=== PATIENT | female | born 1975 | race Caucasian/White ===

== ENCOUNTER 2017-03-05 16:25 | Emergency (ER) | payer SELFPAY ==
[2017-03-05 16:32] VITALS: BP 138/81; PULSE 86; TEMP 97.8; BMI 29.1
[2017-03-05] MEDS ORDERED: ACETAMINOPHEN 325 MG TABLET (FP) PO ONE (17:16)
[2017-03-05] MEDS ORDERED: SULFAMETHOXAZOLE/TRIMETHOPRIM 800MG/160MG D.S. TABLET PO ONE (17:17)
--- NOTE | 2017-03-05 17:24 | PDOC ---
History of Present Illness - General Chief Complaint: Abscess Boil Stated Complaint: LT FOOT SWOLLEN Time Seen by Provider: 03/05/17 16:58 History Source: Patient Exam Limitations: No Limitations - History of Present Illness Initial Comments: 03/05/17 17:21 Chief complaint: 3 tender reddened areas left lower buttocks getting worse History of present illness: Patient is a 41-year-old female with no significant medical history here today complaining of worsening 3 reddened areas left lower buttocks tiny raised area in center, tender to touch and hard. Patient reports that she noticed this earlier this week. Patient reviewed denies ever having anything like this in the past or has been in contact with anyone else with any areas like this on the body. Pt. denies any chills or fever. 03/05/17 17:25 Timing/Duration: getting worse Severity: mild (left lower buttock 3 smalll area of erythema with central raised area tender ) Associated Symptoms: reports: denies symptoms Past History - Past Medical History Allergies/Adverse Reactions: Allergies Allergy/AdvReac Type Severity Reaction Status Date / Time No Known Allergies Allergy Verified 03/05/17 16:28 Home Medications: Ambulatory Orders Sulfamethoxazole/Trimethoprim [Bactrim DS -] 1 tab PO BID #19 tablet 03/05/17 Other medical history: denies - Immunization History Immunization Up to Date: Yes - Psycho/Social/Smoking Cessation Hx Suicidal Ideation: No Smoking History: Never smoked Information on smoking cessation initiated: No Hx Alcohol Use: No Drug/Substance Use Hx: No Review of Systems - Review of Systems Able to Perform ROS?: Yes Constitutional: No: Symptoms Reported HEENTM: No: Symptoms Reported Respiratory: No: Symptoms reported Cardiac (ROS): No: Symptoms Reported ABD/GI: No: Symptoms Reported : No: Symptoms Reported Musculoskeletal: No: Symptoms Reported Integumentary: Yes: Erythema (3 area of erythema with central raised area firm tender) Neurological: No: Symptoms reported *Physical Exam - Vital Signs Last Vital Signs Temp Pulse Resp BP Pulse Ox 97.8 F 86 18 138/81 99 03/05/17 16:29 03/05/17 16:29 03/05/17 16:29 03/05/17 16:29 03/05/17 16:29 - Physical Exam General Appearance: Yes: Appropriately Dressed Respiratory/Chest: positive: Lungs Clear, Normal Breath Sounds Cardiovascular: positive: Regular Rhythm, Regular Rate, S1, S2 Integumentary: positive: Swelling (3 areas of erythema raised in center tender to cough left lower buttock non fluculant ) Neurologic: positive: Alert, Normal Response, Responsive Medical Decision Making - Medical Decision Making 03/05/17 17:24 Patient is a 41-year-old female with no significant medical history here today complaining of worsening 3 reddened areas left lower buttocks tiny raised area in center, tender to touch and hard. Patient reports that she noticed this earlier this week. Patient reviewed denies ever having anything like this in the past or has been in contact with anyone else with any areas like this on the body. Pt. denies any chills or fever. Denies any chance of is not sexually active for over 1 year gets her menstrual cycle monthly.. Early abscess left lower buttock PLAN: acetaminophen 975 mg po now bactrim DS one tab now than bid for 10 days Patient instructed to put as warm as possible hot washcloth on area every hour or 2 while awake and to return to emergency room if redness becomes worse and tenderness of area 03/05/17 17:25 03/05/17 18:06 *DC/Admit/Observation/Transfer Diagnosis at time of Disposition: Abscess of buttock, left - Discharge Dispostion Disposition: HOME Condition at time of disposition: Stable - Prescriptions Prescriptions: Sulfamethoxazole/Trimethoprim [Bactrim DS -] 1 tab PO BID #19 tablet - Patient Instructions Additional Instructions: Was possible wash cloth to left buttocks every hour or 2 for as long as possible for next few days while awake Take ibuprofen as needed as directed by dining car waiter/waitress for pain after eating Return to emergency room if any increased redness of area or tenderness or any discharge from area or any fever or chills Patient to follow up with primary care provider within the next 2 days Patient voiced understanding of discharge instructions and all questions were answered
[2017-03-05] MEDS ORDERED: ACETAMINOPHEN 325 MG TABLET (FP) ONE (17:29)
[2017-03-05] MEDS ORDERED: SULFAMETHOXAZOLE/TRIMETHOPRIM 800MG/160MG D.S. TABLET ONE (17:29)
== END 2017-03-05 18:11 | disposition home or self-care (01) ==
LOC: JERFT 16:25
DX: L02.31 Cutaneous abscess of buttock (principal)
CPT/HCPCS: 99281-25

== ENCOUNTER 2021-04-30 13:49 | Inpatient (IN) | payer OTHER ==
[~2021-04-30 13:49] MED LIST: PIPERACILLIN/TAZOB 3.375 GM 3.375 GM in DEXTROSE 5%-WATER - 50 ML IVPB SCH
[2021-04-30] MEDS ORDERED: ONDANSETRON 4 MG/2 ML VIAL IVPUSH ONE (14:55)
[2021-04-30] MEDS ORDERED: SODIUM CHLORIDE 0.9% 500 ML INFUS.BAG IV ONE ×2 (14:55→17:03)
[2021-04-30] MEDS ORDERED: morphine CARPU-JECT 4 MG/1 ML DISP.SYRIN IVPUSH ONE ×2 (14:55→17:03)
[2021-04-30] MEDS ORDERED: ONDANSETRON 4 MG/2 ML VIAL ONE (14:59)
[2021-04-30] MEDS ORDERED: morphine SULFATE 4 MG/ML VIAL ONE ×2 (14:59→17:27)
[2021-04-30 15:26] LABS: BASO % 0.2 % (0-2.0); EOS % 0.3 % (0-4.5); HEMATOCRIT 46.3 % (32.4-45.2); HEMOGLOBIN 15.8 GM/dL (10.7-15.3); LYMPH % 5.2 % (8-40); MCH 31.2 pg (25.7-33.7); MCHC 34.1 g/dl (32.0-36.0); MEAN CELL VOLUME 91.4 fl (80-96); MONO % 5.3 % (3.8-10.2); PLATELET COUNT 352 10^3/uL (134-434); RBC 5.06 M/mm3 (3.60-5.2); RDW 12.9 % (11.6-15.6); WHITE BLOOD COUNT 17.9 K/mm3 (4.0-10.0)
[2021-04-30 15:35] LABS: EPI CELLS 30 /uL (0-25.1); HYALINE CASTS 4 /uL (0-3.1); URINE APPEARANCE CLEAR; URINE BACTERIA 413 /uL (0-1359); URINE BILIRUBIN NEGATIVE (NEGATIVE); URINE COLOR DK YELLOW; URINE GLUCOSE (UA) NEGATIVE (NEGATIVE); URINE KETONE 2+ (NEGATIVE); URINE LEUK ESTERASE 1+ (NEGATIVE); URINE NITRITE NEGATIVE (NEGATIVE); URINE PROTEIN 1+ (NEGATIVE); URINE RBC 79 /uL (0-23.9); URINE UROBILINOGEN 0.2 mg/dL (0.2-1.0); URINE WBC 67 /uL (0-25.8)
[2021-04-30 15:36] LABS: INR 1.01 (0.83-1.09); PROTHROMBIN TIME (PATIENT) 12.2 SEC (9.7-13.0)
[2021-04-30 15:38] LABS: ACTIVATED PTT 24.5 SECONDS (25.2-36.5)
[2021-04-30 15:44] LABS: CHLORIDE 104 mmol/L (98-107); SODIUM 139 mmol/L (136-145)
[2021-04-30 15:47] LABS: ALBUMIN 4.5 g/dl (3.4-5.0); ANION GAP 7 MMOL/L (8-16); BLOOD UREA NITROGEN 11.8 mg/dL (7-18); CO2 27 mmol/L (21-32); GLUCOSE,RANDOM 107 mg/dL (74-106)
[2021-04-30 15:49] LABS: SGPT/ALT 33 U/L (13-61)
[2021-04-30 15:50] LABS: CREATININE 0.6 mg/dL (0.55-1.3); SGOT/AST 25 U/L (15-37)
[2021-04-30 15:51] LABS: BILIRUBIN,TOTAL 0.6 mg/dL (0.2-1); TOT PROT 8.6 g/dl (6.4-8.2)
[2021-04-30 15:52] LABS: ALK PHOS 82 U/L (45-117)
[2021-04-30 16:05] LABS: LIPASE > 30000 U/L (73-393)
[2021-04-30] MEDS ORDERED: LACTATED RINGERS SOLUTION 1000 ML INFUS.BAG IV ONE (17:42)
[2021-04-30 17:45] LABS: CHOLESTEROL 316 mg/dL (50-200); TRIGLYCERIDES 70 mg/dL (0-150)
[2021-04-30 17:46] LABS: LDL CHOLESTEROL (ONLY SJRH) 189 mg/dL (5-100)
[2021-04-30 17:48] LABS: HDL CHOLESTEROL 90 mg/dL (40-60)
[2021-04-30] MEDS ORDERED: PIPERACILLIN/TAZOB 3.375 GM 3.375 GM in DEXTROSE 5%-WATER - 50 ML IVPB ONE (19:10)
[2021-04-30] MEDS ORDERED: PIPERACILLIN/TAZOB 3.375 GM 3.375 GM/50 ML BAG IVPB ONE (19:21)
[2021-04-30] MEDS ORDERED: LACTATED RINGERS SOLUTION 1,000 ML/1,000 ML INFUS.BAG IV SCH (19:30)
[2021-04-30] MEDS ORDERED: MORPHINE SULFATE 2 MG/ML VIAL IVPUSH PRN (21:19)
[2021-04-30] MEDS: LACTATED RINGERS SOLUTION 1,000 ML/1,000 ML INFUS.BAG IV SCH (23:11)
[2021-05-01] MEDS ORDERED: PIPERACILLIN/TAZOBACTAM 3.375 GM VIAL IVPB ONE ×3 (03:26→16:57)
[2021-05-01] MEDS ORDERED: DEXTROSE 5%-WATER - 50 ML IVPB ONE ×3 (03:26→16:58)
[2021-05-01] MEDS: PIPERACILLIN/TAZOB 3.375 GM 3.375 GM in DEXTROSE 5%-WATER - 50 ML IVPB SCH ×3 (03:36→17:25)
[2021-05-01] MEDS: LACTATED RINGERS SOLUTION 1,000 ML/1,000 ML INFUS.BAG IV SCH ×3 (03:37→22:45)
[2021-05-01] MEDS ORDERED: PIPERACILLIN/TAZOB 3.375 GM 3.375 GM in DEXTROSE 5%-WATER - 50 ML IVPB SCH (04:00)
[2021-05-01 07:36] LABS: HEMATOCRIT 36.4 % (32.4-45.2); HEMOGLOBIN 12.6 GM/dL (10.7-15.3); MCH 31.8 pg (25.7-33.7); MCHC 34.5 g/dl (32.0-36.0); MEAN CELL VOLUME 92.2 fl (80-96); MEAN PLT VOLUME 7.5 fl (7.5-11.1); PLATELET COUNT 274 10^3/uL (134-434); RBC 3.95 M/mm3 (3.60-5.2); RDW 12.7 % (11.6-15.6)
[2021-05-01 07:45] LABS: INR 1.08 (0.83-1.09)
[2021-05-01 07:58] LABS: CALCIUM 7.9 mg/dL (8.5-10.1)
[2021-05-01 07:59] LABS: BLOOD UREA NITROGEN 7.1 mg/dL (7-18); MAGNESIUM 2.1 mg/dL (1.8-2.4)
[2021-05-01 08:02] LABS: CREATININE 0.4 mg/dL (0.55-1.3); PHOSPHOROUS 3.3 mg/dL (2.5-4.9)
[2021-05-01 08:04] LABS: BILIRUBIN,TOTAL 0.7 mg/dL (0.2-1)
[2021-05-01 08:18] LABS: ALBUMIN 3.2 g/dl (3.4-5.0); TOT PROT 6.1 g/dl (6.4-8.2)
[2021-05-01] MEDS ORDERED: ONDANSETRON 4 MG/2 ML VIAL IVPB PRN (08:24)
[2021-05-01] MEDS: ENOXAPARIN NA (PORCINE) 40 MG/0.4 ML DISP.SYRIN SQ SCH (10:48)
[2021-05-01] MEDS: KCL 10 MEQ IVPB 10 MEQ/100 ML INFUS.BAG IVPB SCH ×3 (12:31→14:30)
[2021-05-02] MEDS ORDERED: PIPERACILLIN/TAZOBACTAM 3.375 GM VIAL IVPB ONE ×3 (01:00→16:33)
[2021-05-02] MEDS ORDERED: DEXTROSE 5%-WATER - 50 ML IVPB ONE ×3 (01:00→16:33)
[2021-05-02] MEDS: PIPERACILLIN/TAZOB 3.375 GM 3.375 GM in DEXTROSE 5%-WATER - 50 ML IVPB SCH ×3 (01:08→17:12)
[2021-05-02] MEDS: LACTATED RINGERS SOLUTION 1,000 ML/1,000 ML INFUS.BAG IV SCH ×4 (03:30→23:25)
[2021-05-02 08:18] LABS: BASO % 0.2 % (0-2.0); EOS % 1.2 % (0-4.5); HEMATOCRIT 35.1 % (32.4-45.2); HEMOGLOBIN 12.2 GM/dL (10.7-15.3); LYMPH % 15.1 % (8-40); MCH 31.9 pg (25.7-33.7); MCHC 34.8 g/dl (32.0-36.0); MEAN CELL VOLUME 91.6 fl (80-96); MEAN PLT VOLUME 7.5 fl (7.5-11.1); MONO % 8.1 % (3.8-10.2); NEUT % 75.4 % (42.8-82.8); PLATELET COUNT 255 10^3/uL (134-434); RBC 3.83 M/mm3 (3.60-5.2); RDW 12.6 % (11.6-15.6); WHITE BLOOD COUNT 11.2 K/mm3 (4.0-10.0)
[2021-05-02 08:32] LABS: MAGNESIUM 1.7 mg/dL (1.8-2.4)
[2021-05-02 08:33] LABS: ALBUMIN 3.2 g/dl (3.4-5.0); BLOOD UREA NITROGEN 4.7 mg/dL (7-18); CALCIUM 8.1 mg/dL (8.5-10.1)
[2021-05-02 08:35] LABS: PHOSPHOROUS 3.3 mg/dL (2.5-4.9)
[2021-05-02 08:36] LABS: CREATININE 0.4 mg/dL (0.55-1.3)
[2021-05-02] MEDS: ENOXAPARIN NA (PORCINE) 40 MG/0.4 ML DISP.SYRIN SQ SCH (09:58)
[2021-05-02] MEDS ORDERED: MAGNESIUM 1GM/D5W 100ML - 100 ML IVPB IVPB ONE (11:28)
[2021-05-03] MEDS ORDERED: DEXTROSE 5%-WATER - 50 ML IVPB ONE ×2 (00:06→17:10)
[2021-05-03] MEDS ORDERED: PIPERACILLIN/TAZOBACTAM 3.375 GM VIAL IVPB ONE ×3 (00:06→17:10)
[2021-05-03] MEDS: PIPERACILLIN/TAZOB 3.375 GM 3.375 GM in DEXTROSE 5%-WATER - 50 ML IVPB SCH ×3 (01:10→17:38)
[2021-05-03] MEDS: LACTATED RINGERS SOLUTION 1,000 ML/1,000 ML INFUS.BAG IV SCH ×3 (04:30→19:16)
[2021-05-03 07:15] LABS: EOS % 2.9 % (0-4.5); HEMATOCRIT 33.6 % (32.4-45.2); HEMOGLOBIN 11.9 GM/dL (10.7-15.3); LYMPH % 27.1 % (8-40); MCH 32.4 pg (25.7-33.7); MCHC 35.6 g/dl (32.0-36.0); MEAN PLT VOLUME 7.4 fl (7.5-11.1); MONO % 8.2 % (3.8-10.2); NEUT % 61.8 % (42.8-82.8); PLATELET COUNT 271 10^3/uL (134-434); RBC 3.69 M/mm3 (3.60-5.2); RDW 12.2 % (11.6-15.6); WHITE BLOOD COUNT 7.5 K/mm3 (4.0-10.0)
[2021-05-03 07:19] LABS: ALBUMIN 3.2 g/dl (3.4-5.0)
[2021-05-03 07:20] LABS: BLOOD UREA NITROGEN 3.1 mg/dL (7-18); MAGNESIUM 1.9 mg/dL (1.8-2.4)
[2021-05-03 07:22] LABS: CREATININE 0.4 mg/dL (0.55-1.3)
[2021-05-03 07:23] LABS: PHOSPHOROUS 3.5 mg/dL (2.5-4.9)
[2021-05-03 07:24] LABS: TOT PROT 6.3 g/dl (6.4-8.2)
[2021-05-03] MEDS: ENOXAPARIN NA (PORCINE) 40 MG/0.4 ML DISP.SYRIN SQ SCH (10:15)
[2021-05-04] MEDS: LACTATED RINGERS SOLUTION 1,000 ML/1,000 ML INFUS.BAG IV SCH ×3 (00:30→21:00)
[2021-05-04] MEDS ORDERED: PIPERACILLIN/TAZOBACTAM 3.375 GM VIAL IVPB ONE ×3 (01:01→18:05)
[2021-05-04] MEDS ORDERED: DEXTROSE 5%-WATER - 50 ML IVPB ONE ×3 (01:01→18:05)
[2021-05-04] MEDS: PIPERACILLIN/TAZOB 3.375 GM 3.375 GM in DEXTROSE 5%-WATER - 50 ML IVPB SCH ×3 (01:08→18:21)
[2021-05-04 07:30] LABS: HEMATOCRIT 33.2 % (32.4-45.2); HEMOGLOBIN 11.6 GM/dL (10.7-15.3); MCH 31.8 pg (25.7-33.7); MCHC 34.9 g/dl (32.0-36.0); MEAN CELL VOLUME 91.2 fl (80-96); MEAN PLT VOLUME 7.7 fl (7.5-11.1); PLATELET COUNT 230 10^3/uL (134-434); RBC 3.64 M/mm3 (3.60-5.2); RDW 12.4 % (11.6-15.6); WHITE BLOOD COUNT 7.1 K/mm3 (4.0-10.0)
[2021-05-04 07:52] LABS: CHLORIDE 106 mmol/L (98-107); SODIUM 139 mmol/L (136-145)
[2021-05-04 07:59] LABS: CALCIUM 8.1 mg/dL (8.5-10.1); GLUCOSE,RANDOM 89 mg/dL (74-106)
[2021-05-04 08:00] LABS: ANION GAP 6 MMOL/L (8-16); CO2 27 mmol/L (21-32); MAGNESIUM 1.8 mg/dL (1.8-2.4)
[2021-05-04 08:03] LABS: CREATININE 0.4 mg/dL (0.55-1.3); PHOSPHOROUS 4.2 mg/dL (2.5-4.9)
[2021-05-04] MEDS ORDERED: POTASSIUM CHLORIDE ORAL LIQUID 20 MEQ/15 ML PO ONE (08:20)
[2021-05-04] MEDS: ENOXAPARIN NA (PORCINE) 40 MG/0.4 ML DISP.SYRIN SQ SCH (10:05)
[2021-05-04 12:40] LABS: CHLORIDE 108 mmol/L (98-107); SODIUM 141 mmol/L (136-145)
[2021-05-04 12:47] LABS: CALCIUM 8.3 mg/dL (8.5-10.1)
[2021-05-04 12:48] LABS: ANION GAP 8 MMOL/L (8-16); CO2 25 mmol/L (21-32); GLUCOSE,RANDOM 142 mg/dL (74-106)
[2021-05-04 12:51] LABS: CREATININE 0.5 mg/dL (0.55-1.3)
[2021-05-04 12:54] LABS: BLOOD UREA NITROGEN 2.5 mg/dL (7-18)
[2021-05-04 15:16] LABS: BLOOD UREA NITROGEN 2.3 mg/dL (7-18)
[2021-05-04 18:26] LABS: PH,URINE 8.5 (5.0-8.0); URINE APPEARANCE CLEAR; URINE BILIRUBIN NEGATIVE (NEGATIVE); URINE COLOR YELLOW; URINE GLUCOSE (UA) NEGATIVE (NEGATIVE); URINE KETONE 1+ (NEGATIVE); URINE LEUK ESTERASE NEGATIVE (NEGATIVE); URINE NITRITE NEGATIVE (NEGATIVE); URINE PROTEIN NEGATIVE (NEGATIVE); URINE UROBILINOGEN 0.2 mg/dL (0.2-1.0)
[2021-05-05] MEDS ORDERED: PIPERACILLIN/TAZOBACTAM 3.375 GM VIAL IVPB ONE ×3 (02:57→18:13)
[2021-05-05] MEDS ORDERED: DEXTROSE 5%-WATER - 50 ML IVPB ONE ×2 (02:58→09:01)
[2021-05-05] MEDS: PIPERACILLIN/TAZOB 3.375 GM 3.375 GM in DEXTROSE 5%-WATER - 50 ML IVPB SCH ×3 (03:00→18:31)
[2021-05-05] MEDS: LACTATED RINGERS SOLUTION 1,000 ML/1,000 ML INFUS.BAG IV SCH ×5 (03:10→22:30)
[2021-05-05 07:51] LABS: CALCIUM 8.2 mg/dL (8.5-10.1)
[2021-05-05 07:52] LABS: BLOOD UREA NITROGEN 3.1 mg/dL (7-18); MAGNESIUM 1.7 mg/dL (1.8-2.4)
[2021-05-05 07:55] LABS: CREATININE 0.4 mg/dL (0.55-1.3)
[2021-05-05 07:56] LABS: PHOSPHOROUS 4.1 mg/dL (2.5-4.9)
[2021-05-05 07:57] LABS: TOT PROT 6.2 g/dl (6.4-8.2)
[2021-05-05] MEDS: ENOXAPARIN NA (PORCINE) 40 MG/0.4 ML DISP.SYRIN SQ SCH (09:27)
[2021-05-05] MEDS ORDERED: MAGNESIUM SULF 50% (8.12 MEQ/2 ML-1 GM VIAL) IVPB ONE (10:47)
[2021-05-05] MEDS ORDERED: POTASSIUM CHLORIDE ORAL LIQUID 20 MEQ/15 ML PO ONE (10:47)
[2021-05-06] MEDS ORDERED: BUPIVACAINE HCL/PF 0.5% (5 MG/ML) 30 ML VIAL IJ ONE
[2021-05-06] MEDS ORDERED: ceFAZolin SODIUM 1 GM VIAL IVPB ONE
[2021-05-06] MEDS ORDERED: PIPERACILLIN/TAZOBACTAM 3.375 GM VIAL IVPB ONE ×3 (01:45→10:10)
[2021-05-06] MEDS ORDERED: DEXTROSE 5%-WATER - 50 ML IVPB ONE ×2 (01:45→08:32)
[2021-05-06] MEDS: PIPERACILLIN/TAZOB 3.375 GM 3.375 GM in DEXTROSE 5%-WATER - 50 ML IVPB SCH ×2 (02:30→10:46)
[2021-05-06] MEDS: LACTATED RINGERS SOLUTION 1,000 ML/1,000 ML INFUS.BAG IV SCH ×4 (03:18→21:26)
[2021-05-06] MEDS ORDERED: BUPIVACAINE HCL/PF 0.5% (5MG/ML) 10 ML VIAL ONE ×2 (07:26→07:27)
[2021-05-06 07:47] LABS: HEMOGLOBIN 11.9 GM/dL (10.7-15.3); MCH 32.4 pg (25.7-33.7); MCHC 35.9 g/dl (32.0-36.0); MEAN CELL VOLUME 90.2 fl (80-96); MEAN PLT VOLUME 7.6 fl (7.5-11.1); PLATELET COUNT 265 10^3/uL (134-434); RBC 3.66 M/mm3 (3.60-5.2); RDW 12.2 % (11.6-15.6); WHITE BLOOD COUNT 6.6 K/mm3 (4.0-10.0)
[2021-05-06 07:51] LABS: INR 1.16 (0.83-1.09); PROTHROMBIN TIME (PATIENT) 14.2 SEC (9.7-13.0)
[2021-05-06 07:54] LABS: ACTIVATED PTT 28.3 SECONDS (25.2-36.5)
[2021-05-06 08:08] LABS: CALCIUM 8.2 mg/dL (8.5-10.1)
[2021-05-06 08:10] LABS: MAGNESIUM 2.1 mg/dL (1.8-2.4)
[2021-05-06 08:12] LABS: CREATININE 0.4 mg/dL (0.55-1.3)
[2021-05-06 08:14] LABS: BILIRUBIN,TOTAL 0.6 mg/dL (0.2-1); TOT PROT 6.1 g/dl (6.4-8.2)
[2021-05-06] MEDS ORDERED: fentaNYL CITRATE 250 MCG/5 ML VIAL ONE (10:15)
[2021-05-06] MEDS ORDERED: DEXAMETHASONE SOD PHOSPHATE 4 MG/1 ML VIAL ONE (10:15)
[2021-05-06] MEDS ORDERED: ROCURONIUM BROMIDE 50 MG/5 ML SYRINGE ONE (10:16)
[2021-05-06] MEDS ORDERED: PROPOFOL 20 ML ONE ×2 (10:16)
[2021-05-06] MEDS ORDERED: MIDAZOLAM HCL 2 MG/2 ML SINGLE DOSE VIAL ONE (10:16)
[2021-05-06] MEDS ORDERED: oxyCODONE HCL 5 MG TABLET PO PRN (10:58)
[2021-05-06] MEDS ORDERED: ONDANSETRON 4 MG/2 ML VIAL IVPB PRN (12:24)
[2021-05-06 21:15] LABS: CALCIUM 8.2 mg/dL (8.5-10.1)
[2021-05-06 21:16] LABS: BLOOD UREA NITROGEN 3.6 mg/dL (7-18)
[2021-05-06 21:19] LABS: CREATININE 0.3 mg/dL (0.55-1.3)
[2021-05-06] MEDS: oxyCODONE HCL 5 MG TABLET PO PRN (21:35)
[2021-05-07] MEDS: oxyCODONE HCL 5 MG TABLET PO PRN ×4 (01:34→20:51)
[2021-05-07] MEDS: LACTATED RINGERS SOLUTION 1,000 ML/1,000 ML INFUS.BAG IV SCH (02:30)
[2021-05-07] MEDS ORDERED: ACETAMINOPHEN 1000 MG/100 ML VIAL (NON FORMULARY) IVPB ONE (02:57)
[2021-05-07] MEDS ORDERED: DOCUSATE SODIUM 100 MG CAPSULE (FP) PO ONE (02:58)
[2021-05-07 08:10] LABS: HEMATOCRIT 34.7 % (32.4-45.2); HEMOGLOBIN 12.3 GM/dL (10.7-15.3); MCH 32.1 pg (25.7-33.7); MCHC 35.5 g/dl (32.0-36.0); MEAN CELL VOLUME 90.5 fl (80-96); MEAN PLT VOLUME 7.3 fl (7.5-11.1); PLATELET COUNT 273 10^3/uL (134-434); RBC 3.84 M/mm3 (3.60-5.2); RDW 12.3 % (11.6-15.6); WHITE BLOOD COUNT 8.8 K/mm3 (4.0-10.0)
[2021-05-07 08:35] LABS: MAGNESIUM 2.1 mg/dL (1.8-2.4)
[2021-05-07 08:39] LABS: PHOSPHOROUS 3.6 mg/dL (2.5-4.9)
[2021-05-07] MEDS ORDERED: POLYETHYLENE GLYCOL 3350 119 GM BTL PO SCH (10:00)
[2021-05-07] MEDS ORDERED: ACETAMINOPHEN 325 MG TABLET (FP) PO PRN ×2 (12:42→16:15)
[2021-05-07 15:17] VITALS: BMI 24.7
[2021-05-08] MEDS ORDERED: POLYETHYLENE GLYCOL (HEALTHYLAX) 3350 17 GM PACKET PO SCH (10:00)
[2021-05-08] MEDS ORDERED: DOCUSATE SODIUM 100 MG CAPSULE (FP) PO SCH (14:00)
[2021-05-08 15:09] VITALS: BP 102/68; PULSE 72; TEMP 97.9
[2021-05-08] MEDS: oxyCODONE HCL 5 MG TABLET PO PRN (18:11)
== END 2021-05-08 18:35 | disposition home or self-care (01) | DRG 263 ==
LOC: JER 13:49 → JERBED 19:41 → J4W 21:56
PROVIDERS: ADMIT Internal Medicine
PROC: 0FT44ZZ Resection of Gallbladder, Percutaneous Endoscopic Approach (ICD-10-PCS; principal; 2021-05-06 09:30)
DX: K85.10 Biliary acute pancreatitis without necrosis or infection (principal); K81.0 Acute cholecystitis; I10 Essential (primary) hypertension; E78.5 Hyperlipidemia, unspecified
CPT/HCPCS: 36415; 71046-TC-FY; 74177-TC; 74182-TC; 76705-TC; 80048; 80053; 80061; 81003; 82150; 83690; 83735; 84100; 84703; 85025; 85027; 85610; 85730; 86140; 86850; 86900; 86901; 87086; 87324; 87449; 93005; 93010; 94760; 99285-25; A9579; C9803; J0131; U0003; U0005

== ENCOUNTER 2021-10-30 08:06 | Emergency (ER) | payer OTHER ==
[2021-10-30 08:15] VITALS: BP 119/73; PULSE 85; TEMP 97.5; BMI 28.3
[2021-10-30] MEDS ORDERED: CARBAMIDE PEROXIDE 6.5% OTIC 15 ML BOTTLE AU ONE (08:49)
== END 2021-10-30 10:14 | disposition home or self-care (01) ==
LOC: JERFT 08:06
DX: H61.22 Impacted cerumen, left ear (principal)
CPT/HCPCS: 99283-25

== ENCOUNTER 2022-01-17 11:31 | Emergency (ER) | payer OTHER ==
[2022-01-17 11:37] VITALS: BP 124/79; PULSE 80; TEMP 98; BMI 24.0
[2022-01-17] MEDS ORDERED: SODIUM CHLORIDE 0.9% 500 ML INFUS.BAG IV ONE (12:31)
[2022-01-17] MEDS ORDERED: KETOROLAC TROMETHAMINE 30 MG/1 ML VIAL IVPB ONE (12:31)
[2022-01-17] MEDS ORDERED: METOCLOPRAMIDE HCL INJECTION 10 MG/2 ML VIAL IVPUSH ONE (12:32)
[2022-01-17] MEDS ORDERED: KETOROLAC TROMETHAMINE 30 MG/1 ML VIAL ONE (12:41)
[2022-01-17] MEDS ORDERED: METOCLOPRAMIDE HCL INJECTION 10 MG/2 ML VIAL ONE (12:41)
[2022-01-17 13:11] LABS: BASO % 0.8 % (0-2.0); EOS % 0.9 % (0-4.5); HEMATOCRIT 42.3 % (32.4-45.2); HEMOGLOBIN 14.7 GM/dL (10.7-15.3); LYMPH % 23.6 % (8-40); MCH 31.7 pg (25.7-33.7); MCHC 34.7 g/dl (32.0-36.0); MEAN CELL VOLUME 91.4 fl (80-96); MEAN PLT VOLUME 7.6 fl (7.5-11.1); MONO % 9.6 % (3.8-10.2); NEUT % 65.1 % (42.8-82.8); PLATELET COUNT 317 10^3/uL (134-434); RBC 4.63 M/mm3 (3.60-5.2); RDW 12.8 % (11.6-15.6); WHITE BLOOD COUNT 7.7 K/mm3 (4.0-10.0)
[2022-01-17 13:29] LABS: ALBUMIN 4.1 g/dl (3.4-5.0); BLOOD UREA NITROGEN 9.5 mg/dL (7-18); CALCIUM 8.9 mg/dL (8.5-10.1)
[2022-01-17 13:32] LABS: CREATININE 0.5 mg/dL (0.55-1.3)
[2022-01-17 13:34] LABS: BILIRUBIN,TOTAL 0.8 mg/dL (0.2-1); TOT PROT 7.8 g/dl (6.4-8.2)
== END 2022-01-17 15:35 | disposition home or self-care (01) ==
LOC: JER 11:31 → JERFT 11:31
PROC: 3E033GC Introduction of Other Therapeutic Substance into Peripheral Vein, Percutaneous Approach (ICD-10-PCS; principal; 2022-01-17)
DX: R51.9 Headache, unspecified (principal)
CPT/HCPCS: 36415; 80053; 85025; 99284-25

== ENCOUNTER 2023-06-16 18:10 | Emergency (ER) | payer SELFPAY ==
[2023-06-16 18:24] VITALS: BP 129/88; PULSE 88; RESP 17; TEMP 97.4; BMI 28.5
[2023-06-16] MEDS ORDERED: ACETAMINOPHEN 1000 MG/100 ML BAG IVPB ONE (18:56)
[2023-06-16] MEDS ORDERED: FAMOTIDINE 20 MG/50 ML IVPB 20 MG/50 ML MG IVPB ONE ×2 (18:56→19:30)
[2023-06-16] MEDS ORDERED: ONDANSETRON 4 MG/2 ML VIAL IVPUSH ONE (18:59)
[2023-06-16] MEDS ORDERED: SODIUM CHLORIDE 0.9% 500 ML INFUS.BAG IV ONE (19:17)
[2023-06-16] MEDS ORDERED: ACETAMINOPHEN INJECTION 100 ML IVPB ONE (19:30)
[2023-06-16] MEDS ORDERED: ONDANSETRON 4 MG/2 ML VIAL ONE (19:30)
[2023-06-16 19:59] LABS: BASO % 0.7 % (0-2.0); EOS % 1.6 % (0-4.5); HEMATOCRIT 41.1 % (32.4-45.2); HEMOGLOBIN 14.5 GM/dL (10.7-15.3); LYMPH % 24.1 % (8-40); MCH 31.5 pg (25.7-33.7); MCHC 35.4 g/dl (32.0-36.0); MEAN CELL VOLUME 89.1 fl (80-96); MEAN PLT VOLUME 7.1 fl (7.5-11.1); MONO % 8.4 % (3.8-10.2); NEUT % 65.2 % (42.8-82.8); PLATELET COUNT 348 10^3/uL (134-434); RBC 4.61 M/mm3 (3.60-5.2); WHITE BLOOD COUNT 7.8 K/mm3 (4.0-10.0)
[2023-06-16 20:07] LABS: INR 1.05 (0.83-1.09); PROTHROMBIN TIME (PATIENT) 12.2 SEC (9.7-13.0)
[2023-06-16 20:10] LABS: ACTIVATED PTT 31.1 SECONDS (25.2-36.5)
[2023-06-16 20:17] LABS: POTASSIUM 3.5 mmol/L (3.5-5.1)
[2023-06-16 20:19] LABS: CALCIUM 8.7 mg/dL (8.5-10.1)
[2023-06-16 20:23] LABS: CREATININE 0.5 mg/dL (0.55-1.3)
[2023-06-16 20:24] LABS: BILIRUBIN,TOTAL 0.5 mg/dL (0.2-1)
[2023-06-16 22:05] LABS: EPI CELLS >36 /uL (0-25.1); HYALINE CASTS 2 /uL (0-3.1); PH,URINE 5.5 (5.0-8.0); URINE APPEARANCE CLEAR; URINE BACTERIA 916 /uL (0-1359); URINE BILIRUBIN NEGATIVE (NEGATIVE); URINE COLOR YELLOW; URINE GLUCOSE (UA) NEGATIVE (NEGATIVE); URINE KETONE TRACE (NEGATIVE); URINE LEUK ESTERASE NEGATIVE (NEGATIVE); URINE NITRITE NEGATIVE (NEGATIVE); URINE PROTEIN NEGATIVE (NEGATIVE); URINE RBC 27 /uL (0-23.9); URINE UROBILINOGEN 0.2 mg/dL (0.2-1.0); URINE WBC 34 /uL (0-25.8)
== END 2023-06-16 22:56 | disposition home or self-care (01) ==
LOC: JER 18:10
PROC: 3E033GC Introduction of Other Therapeutic Substance into Peripheral Vein, Percutaneous Approach (ICD-10-PCS; principal; 2023-06-16)
PROC: 3E033NZ Introduction of Analgesics, Hypnotics, Sedatives into Peripheral Vein, Percutaneous Approach (ICD-10-PCS; 2023-06-16)
PROC: 3E033GC Introduction of Other Therapeutic Substance into Peripheral Vein, Percutaneous Approach (ICD-10-PCS; 2023-06-16)
DX: R10.12 Left upper quadrant pain (principal); R10.13 Epigastric pain; R11.0 Nausea; R19.7 Diarrhea, unspecified; R63.0 Anorexia; Z20.822 Contact with and (suspected) exposure to COVID-19
CPT/HCPCS: 0241U-QW; 36415; 71046-TC-FY; 74177-TC; 80053; 81003; 83690; 84478; 84484; 84703; 85025; 85610; 85730; 87086; 93005; 93010; 99285-25

== ENCOUNTER 2023-12-30 11:35 | Emergency (ER) | payer OTHER ==
[2023-12-30 11:54] VITALS: RESP 17; BMI 29.1
[2023-12-30 12:42] LABS: EPI CELLS 25 /uL (0-25.1); HYALINE CASTS 2 /uL (0-3.1); URINE APPEARANCE CLOUDY; URINE BACTERIA 846 /uL (0-1359); URINE BILIRUBIN NEGATIVE (NEGATIVE); URINE COLOR YELLOW; URINE GLUCOSE (UA) NEGATIVE (NEGATIVE); URINE KETONE NEGATIVE (NEGATIVE); URINE LEUK ESTERASE 3+ (NEGATIVE); URINE NITRITE NEGATIVE (NEGATIVE); URINE PROTEIN NEGATIVE (NEGATIVE); URINE RBC 59 /uL (0-23.9); URINE UROBILINOGEN 0.2 mg/dL (0.2-1.0); URINE WBC 432 /uL (0-25.8)
[2023-12-30 12:50] LABS: HCG,QUALITATIVE URINE Negative
[2023-12-30] MEDS ORDERED: ACETAMINOPHEN INJECTION 100 ML IVPB ONE (13:35)
[2023-12-30] MEDS ORDERED: LIDOCAINE VISCOUS 2% ORAL/TOP 15 ML UNIT-DOSE CUP ONE (13:35)
[2023-12-30] MEDS ORDERED: FAMOTIDINE 20 MG/50 ML IVPB 20 MG/50 ML MG IVPB ONE (13:36)
[2023-12-30] MEDS ORDERED: MAG HYDROX/AL HYDROX/SIMETH 30 ML UNIT-DOSE CUP ONE (13:36)
[2023-12-30] MEDS: LIDOCAINE VISCOUS 2% ORAL/TOP 15 ML UNIT-DOSE CUP MM ONE (14:00)
[2023-12-30] MEDS: MAG HYDROX/AL HYDROX/SIMETH 30 ML UNIT-DOSE CUP PO ONE (14:00)
[2023-12-30] MEDS: FAMOTIDINE 20 MG/50 ML IVPB 20 MG/50 ML MG IVPB ONE (14:01)
[2023-12-30] MEDS: SODIUM CHLORIDE 0.9% 500 ML INFUS.BAG IV ONE (14:01)
[2023-12-30] MEDS: ACETAMINOPHEN 1000 MG/100 ML BAG IVPB ONE (14:01)
[2023-12-30 14:08] LABS: BASO % 0.4 % (0-2.0); EOS % 2.2 % (0-4.5); HEMATOCRIT 40.9 % (32.4-45.2); HEMOGLOBIN 14.2 GM/dL (10.7-15.3); LYMPH % 27.9 % (8-40); MCH 31.5 pg (25.7-33.7); MCHC 34.8 g/dl (32.0-36.0); MEAN CELL VOLUME 90.6 fl (80-96); MONO % 8.6 % (3.8-10.2); NEUT % 60.9 % (42.8-82.8); PLATELET COUNT 329 10^3/uL (134-434); RBC 4.51 M/mm3 (3.60-5.2); RDW 12.4 % (11.6-15.6); WHITE BLOOD COUNT 7.7 K/mm3 (4.0-10.0)
[2023-12-30 14:10] LABS: EPI CELLS 12 /uL (0-25.1); HYALINE CASTS 1 /uL (0-3.1); PH,URINE 5.5 (5.0-8.0); URINE APPEARANCE CLEAR; URINE BACTERIA 63 /uL (0-1359); URINE BILIRUBIN NEGATIVE (NEGATIVE); URINE COLOR YELLOW; URINE GLUCOSE (UA) NEGATIVE (NEGATIVE); URINE KETONE NEGATIVE (NEGATIVE); URINE LEUK ESTERASE TRACE (NEGATIVE); URINE NITRITE NEGATIVE (NEGATIVE); URINE PROTEIN NEGATIVE (NEGATIVE); URINE RBC 38 /uL (0-23.9); URINE UROBILINOGEN 0.2 mg/dL (0.2-1.0); URINE WBC 29 /uL (0-25.8)
[2023-12-30 14:50] LABS: POTASSIUM 3.9 mmol/L (3.5-5.1)
[2023-12-30 14:53] LABS: BLOOD UREA NITROGEN 8.9 mg/dL (7-18); CALCIUM 9.2 mg/dL (8.5-10.1)
[2023-12-30 14:56] LABS: CREATININE 0.5 mg/dL (0.55-1.3)
[2023-12-30 14:58] LABS: BILIRUBIN,TOTAL 0.6 mg/dL (0.2-1); TOT PROT 7.7 g/dl (6.4-8.2)
[2023-12-30 17:19] VITALS: BP 124/79; PULSE 73; TEMP 98.3
== END 2023-12-30 17:41 | disposition home or self-care (01) ==
LOC: JER 11:35
PROC: 3E033GC Introduction of Other Therapeutic Substance into Peripheral Vein, Percutaneous Approach (ICD-10-PCS; principal; 2023-12-30)
PROC: 3E033NZ Introduction of Analgesics, Hypnotics, Sedatives into Peripheral Vein, Percutaneous Approach (ICD-10-PCS; 2023-12-30)
DX: R10.13 Epigastric pain (principal); R10.12 Left upper quadrant pain; M54.50 Low back pain, unspecified; R68.83 Chills (without fever); K59.00 Constipation, unspecified; K29.70 Gastritis, unspecified, without bleeding; R35.0 Frequency of micturition
CPT/HCPCS: 36415; 74176-TC; 80053; 81003; 83690; 84703; 85025; 87086; 99284-25; J0131